=== PATIENT | male | born 1950 | race Caucasian/White ===

== ENCOUNTER 2017-01-19 08:07 | Outpatient (CLI) | payer OTHER ==
[2017-01-19 08:57] LABS: MEAN CORPUSCULAR HEMOGLOBIN 29.5 pg (28.0-34.0); MEAN CORPUSCULAR VOLUME 89.6 fl (80.0-100.0)
[2017-01-19 09:10] LABS: eGFR (African) > 60; eGFR (Non-African) > 60
== END 2017-01-19 08:10 ==
LOC: LAB 08:07
PROVIDERS: ATTEND Neuromusculoskeletal Medicine & OMM
DX: R23.3 Spontaneous ecchymoses (principal)
CPT/HCPCS: 36415; 80053; 80061; 84153; 84443; 85027; 85610; 85730